=== PATIENT | female | born 1980 | race Caucasian/White ===

== ENCOUNTER 2022-04-29 18:09 | Emergency (ER) | payer MEDICAID ==
[~2022-04-29] VITALS: Ht 154.9 cm; Wt 56.8 kg
[2022-04-29 18:28] VITALS: BP 136/79
== END 2022-04-29 20:13 | disposition left against medical advice (07) ==
LOC: ER 18:09
DX: K91.870 Postprocedural hematoma of a digestive system organ or structure following a digestive system procedure (principal); K08.409 Partial loss of teeth, unspecified cause, unspecified class; Y83.8 Other surgical procedures as the cause of abnormal reaction of the patient, or of later complication, without mention of misadventure at the time of the procedure
CPT/HCPCS: 99281